=== PATIENT | male | born 1935 | race Caucasian/White ===

== ENCOUNTER 2020-12-26 04:38 | Day surgery (SDC) | payer BC ==
[2020-12-25 10:54] VITALS: BMI 23.6
[2020-12-26 13:08] VITALS: BP 147/66; PULSE 51; TEMP 97.8
== END 2020-12-26 13:15 | disposition home or self-care (01) ==
LOC: JRADIR 04:38
PROVIDERS: ATTEND Internal Medicine Pulmonary Disease
PROC: 0BJQ3ZZ Inspection of Pleura, Percutaneous Approach (ICD-10-PCS; principal; 2020-12-26)
PROC: BB4BZZZ Ultrasonography of Pleura (ICD-10-PCS; 2020-12-26)
DX: J90 Pleural effusion, not elsewhere classified (principal); Z53.8 Procedure and treatment not carried out for other reasons
CPT/HCPCS: 32555; 76604-TC

== ENCOUNTER 2021-01-22 16:30 | Inpatient (IN) | payer BC ==
[2021-01-22 16:40] VITALS: BMI 23.6
[2021-01-22] MEDS ORDERED: ASPIRIN 81 MG CHEWABLE TABLETS PO ONE (18:03)
[2021-01-22] MEDS ORDERED: ASPIRIN 81 MG CHEWABLE TABLETS ONE (18:13)
[2021-01-22 18:31] LABS: EOS % 3.8 % (0-4.5); HEMATOCRIT 35.2 % (35.4-49); LYMPH % 17.8 % (8-40); MCH 29.6 pg (25.7-33.7); MEAN CELL VOLUME 87.1 fl (80-96); MEAN PLT VOLUME 8.8 fl (7.5-11.1); MONO % 12.1 % (3.8-10.2); NEUT % 65.3 % (42.8-82.8); PLATELET COUNT 200 10^3/uL (134-434); RBC 4.04 M/mm3 (4.00-5.60); WHITE BLOOD COUNT 5.2 K/mm3 (4.0-10.0)
[2021-01-22 18:37] LABS: INR 1.05 (0.83-1.09); PROTHROMBIN TIME (PATIENT) 12.9 SEC (9.7-13.0)
[2021-01-22 18:40] LABS: ACTIVATED PTT 25.3 SECONDS (25.2-36.5)
[2021-01-22 18:51] LABS: CHLORIDE 107 mmol/L (98-107); SODIUM 141 mmol/L (136-145)
[2021-01-22 18:53] LABS: CALCIUM 8.2 mg/dL (8.5-10.1)
[2021-01-22 18:54] LABS: ALBUMIN 3.5 g/dl (3.4-5.0); ANION GAP 6 MMOL/L (8-16); BLOOD UREA NITROGEN 23.3 mg/dL (7-18); CO2 28 mmol/L (21-32); GLUCOSE,RANDOM 80 mg/dL (74-106); MAGNESIUM 2.4 mg/dL (1.8-2.4)
[2021-01-22 18:57] LABS: CREATININE 1.7 mg/dL (0.55-1.3); SGOT/AST 20 U/L (15-37); SGPT/ALT 21 U/L (13-61)
[2021-01-22 18:58] LABS: BILIRUBIN,TOTAL 0.6 mg/dL (0.2-1); TOT PROT 6.6 g/dl (6.4-8.2)
[2021-01-22 19:00] LABS: ALK PHOS 82 U/L (45-117)
[2021-01-23 00:18] LABS: EPI CELLS 2 /uL (0-25.1); HYALINE CASTS 0 /uL (0-3.1); PH,URINE 6.5 (5.0-8.0); URINE APPEARANCE CLEAR; URINE BACTERIA 3 /uL (0-1359); URINE BILIRUBIN NEGATIVE (NEGATIVE); URINE COLOR YELLOW; URINE GLUCOSE (UA) NEGATIVE (NEGATIVE); URINE KETONE NEGATIVE (NEGATIVE); URINE LEUK ESTERASE NEGATIVE (NEGATIVE); URINE NITRITE NEGATIVE (NEGATIVE); URINE PROTEIN 1+ (NEGATIVE); URINE RBC 4 /uL (0-23.9); URINE WBC 5 /uL (0-25.8)
[2021-01-23] MEDS ORDERED: HEPARIN NA (PORCINE) 5,000 UNITS/ML 1ML VIAL SQ SCH (06:00)
[2021-01-23] MEDS ORDERED: HEPARIN NA (PORCINE) 5,000 UNITS/ML 1ML VIAL ONE (06:56)
[2021-01-23 08:09] LABS: HEMATOCRIT 35.1 % (35.4-49); HEMOGLOBIN 11.8 GM/dL (11.7-16.9); MCH 29.5 pg (25.7-33.7); MCHC 33.8 g/dl (32.0-35.9); MEAN CELL VOLUME 87.4 fl (80-96); MEAN PLT VOLUME 8.4 fl (7.5-11.1); PLATELET COUNT 171 10^3/uL (134-434); RBC 4.01 M/mm3 (4.00-5.60); RDW 14.8 % (11.9-15.9); WHITE BLOOD COUNT 4.5 K/mm3 (4.0-10.0)
[2021-01-23 08:25] VITALS: TEMP 97.8
[2021-01-23 08:26] LABS: CHLORIDE 110 mmol/L (98-107); SODIUM 141 mmol/L (136-145)
[2021-01-23 08:27] LABS: CALCIUM 8.1 mg/dL (8.5-10.1)
[2021-01-23 08:28] LABS: ANION GAP 4 MMOL/L (8-16); BLOOD UREA NITROGEN 22.6 mg/dL (7-18); CO2 27 mmol/L (21-32); GLUCOSE,RANDOM 88 mg/dL (74-106); MAGNESIUM 2.3 mg/dL (1.8-2.4)
[2021-01-23 08:31] LABS: CHOLESTEROL 105 mg/dL (50-200); CREATININE 1.5 mg/dL (0.55-1.3)
[2021-01-23 08:32] LABS: LDL CHOLESTEROL (ONLY SJRH) 49 mg/dL (5-100); PHOSPHOROUS 3.8 mg/dL (2.5-4.9); TRIGLYCERIDES 71 mg/dL (0-150)
[2021-01-23 08:34] LABS: HDL CHOLESTEROL 44 mg/dL (40-60)
[2021-01-23] MEDS ORDERED: VALSARTAN 80 MG TABLET ONE (09:48)
[2021-01-23] MEDS ORDERED: ASPIRIN COATED 81 MG TABLET.EC ONE (09:48)
[2021-01-23] MEDS ORDERED: LOSARTAN POTASSIUM 50 MG TABLET PO SCH (10:00)
[2021-01-23] MEDS ORDERED: VALSARTAN 80 MG TABLET PO SCH (10:00)
[2021-01-23] MEDS ORDERED: ASPIRIN COATED 81 MG TABLET.EC PO SCH (10:00)
[2021-01-23 15:21] VITALS: BP 152/74; PULSE 52
[2021-01-23] MEDS ORDERED: ATORVASTATIN CA 20 MG TABLET (FP) PO SCH (22:00)
== END 2021-01-23 15:24 | disposition home or self-care (01) | DRG 313 ==
LOC: JER 16:30 → JERBED 18:11 → OBSVTOIN 01-23 00:47
PROVIDERS: ADMIT Internal Medicine; ATTEND Internal Medicine
DX: R07.9 Chest pain, unspecified (principal); R00.1 Bradycardia, unspecified; G20 Parkinson's disease; E78.5 Hyperlipidemia, unspecified; N18.32 Chronic kidney disease, stage 3b; I12.9 Hypertensive chronic kidney disease with stage 1 through stage 4 chronic kidney disease, or unspecified chronic kidney disease
CPT/HCPCS: 36415; 71045-TC-FY; 76775-TC; 80048; 80051; 80053; 80061; 81003; 82550; 83036; 83721; 83735; 84100; 84443; 84484; 85025; 85027; 85610; 85730; 87086; 93005; 93010; 99285-25; C9803; G0378; J1644; U0003; U0005